=== PATIENT | male | born 1965 | race Caucasian/White ===

== ENCOUNTER 2017-07-02 10:48 | Inpatient (IN) | payer OTHER ==
[~2017-07-02] VITALS: Ht 175.3 cm; Wt 88.5 kg
[~2017-07-02 10:48] MED LIST: PERCOCET 10-321 EACH PO
[2017-07-02 12:51] LABS: HEMOGLOBIN 15.8 gm/dl (14.0-17.5); RED BLOOD COUNT 5.3 M/UL (4.20-5.50); WHITE BLOOD COUNT 9.6 K/UL (4.5-11.0)
[2017-07-02 13:20] LABS: BUN/CREATININE RATIO 22 (0-10)
[2017-07-03 04:45] LABS: HEMOGLOBIN 14.3 gm/dl (14.0-17.5); WHITE BLOOD COUNT 7.5 K/UL (4.5-11.0)
[2017-07-03 04:46] LABS: RED BLOOD COUNT 4.76 M/UL (4.20-5.50)
[2017-07-03 05:08] LABS: BUN/CREATININE RATIO 16 (0-10)
[2017-07-04 03:11] LABS: HEMOGLOBIN 14.6 gm/dl (14.0-17.5); RED BLOOD COUNT 4.83 M/UL (4.20-5.50); WHITE BLOOD COUNT 6.6 K/UL (4.5-11.0)
[2017-07-04 03:24] LABS: BUN/CREATININE RATIO 18 (0-10)
[2017-07-05 04:11] LABS: RED BLOOD COUNT 4.99 M/UL (4.20-5.50); WHITE BLOOD COUNT 6.6 K/UL (4.5-11.0)
[2017-07-05 04:30] LABS: BUN/CREATININE RATIO 18 (0-10)
== END 2017-07-05 18:07 | disposition home or self-care (01) | DRG 442 ==
LOC: ER1 10:48 → ZEROF 15:30 → MED SURG 4 15:30
PROVIDERS: Internal Medicine; Physician Assistant; ADMIT Internal Medicine Infectious Disease
DX: B17.9 Acute viral hepatitis, unspecified (principal); K80.10 Calculus of gallbladder with chronic cholecystitis without obstruction; E87.1 Hypo-osmolality and hyponatremia; R11.2 Nausea with vomiting, unspecified; E80.6 Other disorders of bilirubin metabolism; I10 Essential (primary) hypertension; F17.210 Nicotine dependence, cigarettes, uncomplicated; R19.7 Diarrhea, unspecified; Z86.19 Personal history of other infectious and parasitic diseases; R10.30 Lower abdominal pain, unspecified; Z98.890 Other specified postprocedural states
CPT/HCPCS: 36415; 74181; 76705; 80053; 80074; 81001; 82150; 82248; 83690; 83735; 85025; 85027; 85610; 99285; J0500; J1335; J2270; J2405; J7030; J7050; Q9962